=== PATIENT | male | born 1950 | race Caucasian/White ===

== ENCOUNTER → 2016-10-09 | Outpatient (CLI) | payer BC, OTHER ==
[~2016-10-09] MED LIST: ASPI325T32 PO; ATOR40TA68 PO; FEBU40TA PO; HYDR-905 PO; LYRI25 PO; METO-448 PO; PANT40TA4 PO; TRAM50TA2 PO; [UNRECOGNIZED DRUG - CODE] PO
== END | disposition home or self-care (01) ==
LOC: HKI 09:02
PROVIDERS: ATTEND Orthopaedic Surgery
DX: Z47.1 Aftercare following joint replacement surgery (principal); M17.11 Unilateral primary osteoarthritis, right knee; I10 Essential (primary) hypertension; Z96.651 Presence of right artificial knee joint; Z95.5 Presence of coronary angioplasty implant and graft; Z95.0 Presence of cardiac pacemaker; Z88.0 Allergy status to penicillin
CPT/HCPCS: G0463

== ENCOUNTER → 2017-01-20 | Outpatient (CLI) | payer BC ==
--- NOTE | 2017-01-21 12:26 | RADRPT ---
PROCEDURE: Right knee radiographs. CLINICAL INDICATION: Right knee pain. Postop. TECHNIQUE: Three views. Weight bearing. Frontal, lateral, and patellar view. COMPARISON: 09/11/2016. FINDINGS: There is no fracture or dislocation. There is a joint effusion. The soft tissues are otherwise normal. There is a total right knee arthroplasty which appears satisfactory. There is no lytic or blastic lesion. IMPRESSION: 1. Joint effusion. 2. Otherwise unremarkable postoperative appearance of the right knee. RPTAT: QQ .Olman Castaneda MD, MD Date Time Electronically viewed and signed by .Olman Castaneda MD, MD on 01/21/2017 12:25 .R/
== END | disposition home or self-care (01) ==
LOC: HKI 14:18
PROVIDERS: ATTEND Orthopaedic Surgery
DX: Z47.89 Encounter for other orthopedic aftercare (principal); Z96.651 Presence of right artificial knee joint
CPT/HCPCS: 73562; G0463